=== PATIENT | male | born 1945 | race African-American/Black ===

== ENCOUNTER 2023-12-25 01:02 | Emergency (ER) | payer MEDICARE, MEDICAID ==
[~2023-12-25] VITALS: Ht 167.6 cm; Wt 55.0 kg
[~2023-12-25 01:02] MED LIST: AMLO2.5T45 PO; ASPI-1160 PO; DEXTL PO; DUTA0.5C2 PO; FAMO20TA8 PO; LIP40 PO; LOV30 SUBCUT; TAMS-11 PO; THIA100T72 NG
[2023-12-25 01:13] VITALS: O2SAT 99
[2023-12-25] MEDS: DIATR MEGLU/DIATRIZOATE SOLN 30ML ONE (03:00)
[2023-12-25] MEDS: DIATR MEGLU/DIATRIZOATE SOLN 30ML GT ONE (03:01)
[2023-12-25 04:12] VITALS: TEMP 98
[2023-12-25 06:00] VITALS: BP 111/74; PULSE 88; RESP 20
== END 2023-12-25 05:56 ==
LOC: ER 01:02
DX: K94.23 Gastrostomy malfunction (principal); K21.9 Gastro-esophageal reflux disease without esophagitis; I10 Essential (primary) hypertension; F19.90 Other psychoactive substance use, unspecified, uncomplicated; Z98.890 Other specified postprocedural states
CPT/HCPCS: 99284; 74018; Q9963

== ENCOUNTER 2024-01-21 11:46 | Inpatient (IN) | payer MEDICARE, OTHER ==
[~2024-01-21] VITALS: Ht 172.7 cm; Wt 55.3 kg
[2024-01-21] VITALS (24 sets, daily range): BP systolic 97–122; BP diastolic 49–77; PULSE 76–92; RESP 16–28; TEMP 98–98.7
[2024-01-21] MEDS ORDERED: PANTOPRAZOLE 80 MG in SODIUM CHLORIDE 0.9% 100 ML IV SCH ×2 (12:00→20:00)
[2024-01-21] MEDS: PANTOPRAZOLE SODIUM 40 MG/VIAL IV ONE (12:45)
[2024-01-21] MEDS: PIPERACILLIN/TAZO 3.375G/50ML 50 ML IV ONE (12:46)
[2024-01-21] MEDS: ONDANSETRON HCL 4MG/2ML INJ IV ONE ×2 (12:46→16:45)
[2024-01-21] MEDS: SODIUM CHLORIDE 0.9% 1000ML BAG (SEPSIS BOLUS) IV ONE (12:47)
[2024-01-21 12:53] LABS: HEMATOCRIT. 33.2 % (42.0-52.0); HEMOGLOBIN. 10.8 g/dL (14.0-18.0); MEAN CORPUSCULAR HEMOGLOBIN 29.3 pg (28.0-32.0); MEAN CORPUSCULAR HGB CONC 32.5 g/dL (31.0-37.0); MEAN CORPUSCULAR VOLUME 90.2 fL (80.0-94.0); PLATELET 546 x1000/uL (130-400); RED BLOOD CELL COUNT 3.68 mill/uL (4.7-6.1); RED CELL DISTRIBUTION WIDTH 18.5 % (11.6-14.6); WHITE BLOOD COUNT 17.3 x1000/uL (4.5-11.0)
[2024-01-21 12:54] LABS: DIFFERENTIAL COMMENT 1
[2024-01-21 13:00] LABS: CHLORIDE 103 mEq/L (98-107); POTASSIUM 4.7 mEq/L (3.5-5.1); SODIUM 138 mEq/L (136-145)
[2024-01-21 13:01] LABS: CALCIUM 8.6 mg/dL (8.7-10.4); CARBON DIOXIDE 28 mEq/L (21-32)
[2024-01-21 13:06] LABS: GLUCOSE 130 mg/dL (70-105); UREA NITROGEN BLOOD 18 mg/dL (9-23)
[2024-01-21 13:08] LABS: ALANINE AMINOTRANSFERASE 80 IU/L (10-49); ALBUMIN 2.8 g/dL (3.2-4.8); ASPARTATE AMINOTRANSFERASE 52 IU/L (<34); BILIRUBIN DIRECT 0.3 mg/dL (<=3.0); BILIRUBIN TOTAL 0.7 mg/dL (0.1-1.0); INR 1.1; PROTEIN TOTAL 5.5 g/dL (6.0-8.3); PROTHROMBIN TIME 11.9 sec (9.6-11.0)
[2024-01-21 13:24] LABS: CLARITY URINE TURBID (CLEAR); COLOR URINE DARK YELLOW (YELLOW); GLUCOSE URINE NEGATIVE (NEGATIVE); KETONES URINE TRACE (NEGATIVE); LEUKOCYTE ESTERASE URINE 3+ (NEGATIVE); NITRITE URINE NEGATIVE (NEGATIVE); OCCULT BLOOD URINE 3+ (NEGATIVE); PROTEIN URINE 3+ (NEGATIVE); SPECIFIC GRAVITY URINE 1.023 (1.005-1.030)
[2024-01-21] MEDS: PANTOPRAZOLE 80 MG in SODIUM CHLORIDE 0.9% 100 ML IV SCH ×2 (13:34→21:58)
[2024-01-21] MEDS: ACETAMINOPHEN 1000MG/100ML 100 ML IV ONE (13:39)
[2024-01-21] MEDS: VANCOMYCIN 1G PREMIX 200 ML IV SCH (13:41)
[2024-01-21 13:45] LABS: LACTIC ACID 5.3 mmol/L (0.4-2.0)
[2024-01-21 13:46] LABS: ETHANOL BLOOD < 10 mg/dL (<10); TROPONIN I HIGH SENSITIVITY 808 ng/L (3.0-53)
[2024-01-21 13:51] LABS: CALCIUM OXALATE CRYSTALS URINE 1+ /lpf
[2024-01-21 13:52] LABS: SQUAMOUS EPITHELIAL CELL URINE NONE SEEN /lpf (RARE/1+)
[2024-01-21 13:53] LABS: BACTERIA URINE 4+; RBC URINE 50-100 /hpf (0-2); WBC URINE 50-100 /hpf (0-2)
[2024-01-21 14:17] LABS: BG BASE EXCESS -2.3 mmol/L (-2.0-2.0); BG CARBOXYHEMOGLOBIN 0.3 % (0.5-1.5); BG DEOXYHEMOGLOBIN 4.9 % (0.0-5.0); BG FRACTION INSPIRED OXYGEN 100; BG HCO3 ACT 20.8 mmol/L (22.0-26.0); BG METHEMOGLOBIN 0.1 % (0.0-1.5); BG OXYGEN SATURATION 95.1 % (92.0-98.5); BG OXYHEMOGLOBIN 94.7 % (94.0-97.0); BG PCO2 29.8 mmHg (35.0-45.0); BG PH 7.461 (7.350-7.450); BG PO2 78.2 mmHg (75.0-100.0); BG SAMPLE SITE RIGHT RADIAL; BG TOTAL HEMOGLOBIN 10.4 g/dL (12.0-18.0); BG VENT MODE MASK - NRB
[2024-01-21 14:19] LABS: *AMPHETAMINES SCREEN URINE NEGATIVE (NEGATIVE); *BARBITURATES SCREEN URINE NEGATIVE (NEGATIVE); *BENZODIAZEPINES SCREEN URINE NEGATIVE (NEGATIVE); *COCAINE SCREEN URINE PRESUMPTIVE POSITIVE (NEGATIVE); CANNABINOID URINE SCREEN PRESUMPTIVE POSITIVE (NEGATIVE); METHADONE URINE SCREEN NEGATIVE (NEGATIVE); OPIATES URINE SCREEN NEGATIVE (NEGATIVE); PHENCYCLIDINE URINE SCREEN NEGATIVE (NEGATIVE)
[2024-01-21 14:20] LABS: ECSTASY MDMA SCREEN URINE NEGATIVE (NEGATIVE)
[2024-01-21] MEDS ORDERED: LIDOCAINE HCL 1% 10 MG/ML 10ML VIAL ONE (14:24)
[2024-01-21 15:07] LABS: ANISOCYTOSIS 2+; PLATELET ESTIMATE INCREASED
[2024-01-21] MEDS: NOREPINEPHRINE 8MG/250ML PMX 250 ML IV ONE (15:13)
[2024-01-21] MEDS: SODIUM CHLORIDE 0.9% 1,000 ML IV ONE ×2 (15:13→15:26)
[2024-01-21] MEDS ORDERED: DOCUSATE SODIUM 100MG CAPSULE PO PRN (15:45)
[2024-01-21] MEDS ORDERED: GUAIFENESIN 200MG/10ML SUGAR FREE UDC PO PRN (15:45)
[2024-01-21] MEDS ORDERED: ONDANSETRON HCL 4MG/2ML INJ IV PRN (15:45)
[2024-01-21] MEDS ORDERED: MAGNESIUM/ALUMINUM HYDROXIDE/SIMETHICONE 30ML UDC PO PRN (15:45)
[2024-01-21] MEDS ORDERED: NITROGLYCERIN 0.4MG TABLET SL SL PRN (15:45)
[2024-01-21] MEDS ORDERED: ACETAMINOPHEN 325MG TABLET PO PRN (15:45)
[2024-01-21] MEDS ORDERED: CLONIDINE 0.1MG TABLET PO PRN (15:45)
[2024-01-21] MEDS ORDERED: MEROPENEM 1,000 MG in SODIUM CHLORIDE 0.9% 100 ML IV SCH (16:30)
[2024-01-21 16:42] LABS: FOLIC ACID (FOLATE) SERUM > 20.00 ng/mL (>5.38); IRON 13 ug/dL (65-175)
[2024-01-21 16:43] LABS: VITAMIN B12 SERUM 691 pg/mL (211-911)
[2024-01-21 16:44] LABS: TOTAL IRON BINDING CAPACITY 292 ug/dl (250-425)
[2024-01-21] MEDS: DEXT 5%/LACTATED RINGERS 1,000 ML IV SCH (20:00)
[2024-01-21] MEDS: MEROPENEM 1G/100ML 100 ML IV SCH (20:11)
[2024-01-21] MEDS ORDERED: ZOLPIDEM TARTRATE 5MG TABLET PO PRN (21:00)
[2024-01-21] MEDS: VANCOMYCIN 750MG/150ML IV SCH (21:20)
[2024-01-21 21:34] LABS: HEMATOCRIT 33.1 % (42.0-52.0); HEMOGLOBIN 10.6 g/dL (14.0-18.0)
[2024-01-21] MEDS ORDERED: MEROPENEM 1G/100ML 100 ML IV SCH (22:00)
[2024-01-22] VITALS (94 sets, daily range): BP systolic 100–143; BP diastolic 55–99; PULSE 83–116; RESP 15–35; TEMP 98.5–100.3; O2SAT 92
[2024-01-22] MEDS ORDERED: LORAZEPAM 4MG/ML INJ IV NR (01:30)
[2024-01-22] MEDS: LORAZEPAM 2MG/ML INJ IV NR (01:45)
[2024-01-22] MEDS: NOREPINEPHRINE 8MG/250ML PMX 250 ML IV PRN (02:09)
[2024-01-22 08:48] LABS: HEMATOCRIT. 29.2 % (42.0-52.0); HEMOGLOBIN. 9.6 g/dL (14.0-18.0); MEAN CORPUSCULAR HEMOGLOBIN 29.3 pg (28.0-32.0); MEAN CORPUSCULAR HGB CONC 32.7 g/dL (31.0-37.0); MEAN CORPUSCULAR VOLUME 89.4 fL (80.0-94.0); MEAN PLATELET VOLUME 7.3 fl (7.4-10.4); PLATELET 391 x1000/uL (130-400); RED BLOOD CELL COUNT 3.26 mill/uL (4.7-6.1); WHITE BLOOD COUNT 18.7 x1000/uL (4.5-11.0)
[2024-01-22 09:03] LABS: CALCIUM 8.3 mg/dL (8.7-10.4); CHLORIDE 109 mEq/L (98-107); POTASSIUM 3.9 mEq/L (3.5-5.1); SODIUM 140 mEq/L (136-145)
[2024-01-22 09:04] LABS: CARBON DIOXIDE 25 mEq/L (21-32)
[2024-01-22 09:07] LABS: DIFFERENTIAL COMMENT 1
[2024-01-22 09:09] LABS: GLUCOSE 99 mg/dL (70-105); UREA NITROGEN BLOOD 10 mg/dL (9-23)
[2024-01-22 09:11] LABS: PHOSPHORUS 2.4 mg/dL (2.5-4.9)
[2024-01-22 09:12] LABS: CREATININE 0.5 mg/dL (0.6-1.3)
[2024-01-22] MEDS: PANTOPRAZOLE SODIUM 40 MG/VIAL IV SCH (11:33)
[2024-01-22] MEDS: POTASSIUM PHOSPHATE 10 MMOL in DEXT 5% WATER 246.6667 ML IV NR (13:35)
[2024-01-22] MEDS: TAMSULOSIN HCL 0.4MG SR CAPSULE PO SCH (13:53)
[2024-01-22 14:10] LABS: *AMPHETAMINES SCREEN URINE NEGATIVE (NEGATIVE); *BARBITURATES SCREEN URINE NEGATIVE (NEGATIVE); *BENZODIAZEPINES SCREEN URINE NEGATIVE (NEGATIVE); *COCAINE SCREEN URINE NEGATIVE (NEGATIVE); CANNABINOID URINE SCREEN NEGATIVE (NEGATIVE); METHADONE URINE SCREEN NEGATIVE (NEGATIVE); OPIATES URINE SCREEN NEGATIVE (NEGATIVE); PHENCYCLIDINE URINE SCREEN NEGATIVE (NEGATIVE)
[2024-01-22 14:11] LABS: ECSTASY MDMA SCREEN URINE NEGATIVE (NEGATIVE)
[2024-01-22] MEDS: IRON SUCROSE COMPLEX 100 MG/5 ML ML IV SCH (16:21)
[2024-01-22 16:58] LABS: AMMONIA < 17 uMol/L (<32)
[2024-01-22] MEDS: SUCRALFATE 1G TABLET PEG SCH (17:41)
[2024-01-22 18:17] LABS: ANISOCYTOSIS 2+; PLATELET ESTIMATE NORMAL
[2024-01-22] MEDS: ATORVASTATIN CALCIUM 40MG TABLET PO SCH (21:09)
[2024-01-22] MEDS: VANCOMYCIN 500MG PREMIX 100 ML IV SCH (21:10)
[2024-01-22] MEDS: IPRATROPIUM/ALBUTEROL 0.5-3(2.5)MG/3ML NEB HHN SCH (21:15)
[2024-01-23] VITALS (59 sets, daily range): BP systolic 88–133; BP diastolic 56–83; PULSE 73–113; RESP 16–31; TEMP 97.5–100.5; O2SAT 97
[2024-01-23] MEDS: ACETAMINOPHEN 325MG TABLET PO PRN (05:06)
[2024-01-23 06:48] LABS: BASOPHILS % 0.2 % (0.0-2.0); HEMATOCRIT. 28.6 % (42.0-52.0); HEMOGLOBIN. 9.3 g/dL (14.0-18.0); LYMPHOCYTES % 8.1 % (20.0-50.0); MEAN CORPUSCULAR HGB CONC 32.6 g/dL (31.0-37.0); MEAN CORPUSCULAR VOLUME 89.2 fL (80.0-94.0); MEAN PLATELET VOLUME 7.4 fl (7.4-10.4); MONOCYTES % 9.7 % (2.0-8.0); PLATELET 384 x1000/uL (130-400); WHITE BLOOD COUNT 14.7 x1000/uL (4.5-11.0)
[2024-01-23 08:21] LABS: CHLORIDE 109 mEq/L (98-107); POTASSIUM 3.2 mEq/L (3.5-5.1); SODIUM 140 mEq/L (136-145)
[2024-01-23 08:22] LABS: CARBON DIOXIDE 23 mEq/L (21-32)
[2024-01-23 08:23] LABS: CALCIUM 8.3 mg/dL (8.7-10.4)
[2024-01-23 08:27] LABS: CREATININE 0.4 mg/dL (0.6-1.3); GLUCOSE 96 mg/dL (70-105); UREA NITROGEN BLOOD 7 mg/dL (9-23)
[2024-01-23] MEDS ORDERED: POTASSIUM CHLORIDE 40 MEQ in DEXT 5% WATER 230 ML IV ONE (10:45)
[2024-01-23] MEDS: KCL 20MEQ/100ML X 2 FOR TOTAL KCL 40MEQ/200ML IV SCH (12:24)
[2024-01-23] MEDS ORDERED: VANCOMYCIN 750 MG in DEXT 5% WATER 250 ML IV SCH (18:00)
[2024-01-23] MEDS: VANCOMYCIN 750MG/150ML IV SCH (18:26)
[2024-01-24] VITALS (28 sets, daily range): BP systolic 113–143; BP diastolic 64–83; PULSE 91–108; RESP 18–27; TEMP 97.2–98.5; O2SAT 95–98
[2024-01-24 06:13] LABS: BASOPHILS % 0.5 % (0.0-2.0); EOSINOPHILS % 0.9 % (0.0-5.0); HEMATOCRIT. 30.5 % (42.0-52.0); HEMOGLOBIN. 10.1 g/dL (14.0-18.0); LYMPHOCYTES % 14.7 % (20.0-50.0); MEAN CORPUSCULAR HEMOGLOBIN 29.3 pg (28.0-32.0); MEAN CORPUSCULAR HGB CONC 33.2 g/dL (31.0-37.0); MEAN CORPUSCULAR VOLUME 88.2 fL (80.0-94.0); MEAN PLATELET VOLUME 7.5 fl (7.4-10.4); MONOCYTES % 10.7 % (2.0-8.0); NEUTROPHILS % 73.2 % (40.0-76.0); PLATELET 400 x1000/uL (130-400); RED BLOOD CELL COUNT 3.46 mill/uL (4.7-6.1); RED CELL DISTRIBUTION WIDTH 18.5 % (11.6-14.6); WHITE BLOOD COUNT 10.4 x1000/uL (4.5-11.0)
[2024-01-24 06:25] LABS: CARBON DIOXIDE 27 mEq/L (21-32); CHLORIDE 107 mEq/L (98-107); POTASSIUM 3.6 mEq/L (3.5-5.1); SODIUM 135 mEq/L (136-145)
[2024-01-24 06:26] LABS: CALCIUM 8.3 mg/dL (8.7-10.4)
[2024-01-24 06:31] LABS: CREATININE 0.3 mg/dL (0.6-1.3); GLUCOSE 107 mg/dL (70-105)
[2024-01-24 06:33] LABS: PHOSPHORUS 2.5 mg/dL (2.5-4.9)
[2024-01-24 07:11] LABS: UREA NITROGEN BLOOD < 5 mg/dL (9-23)
[2024-01-24] MEDS: IPRATROPIUM/ALBUTEROL 0.5-3(2.5)MG/3ML NEB NEB PRN (08:40)
[2024-01-25] VITALS (24 sets, daily range): BP systolic 105–147; BP diastolic 51–86; PULSE 78–122; RESP 13–31; TEMP 97.3–99; O2SAT 96–98
[2024-01-25 05:53] LABS: BASOPHILS % 0.3 % (0.0-2.0); EOSINOPHILS % 1.8 % (0.0-5.0); HEMATOCRIT 31.1 % (42.0-52.0); HEMATOCRIT. 31.1 % (42.0-52.0); HEMOGLOBIN 10.4 g/dL (14.0-18.0); HEMOGLOBIN. 10.4 g/dL (14.0-18.0); LYMPHOCYTES % 19.4 % (20.0-50.0); MEAN CORPUSCULAR HEMOGLOBIN 29.5 pg (28.0-32.0); MEAN CORPUSCULAR HGB CONC 33.6 g/dL (31.0-37.0); MEAN PLATELET VOLUME 7.4 fl (7.4-10.4); MONOCYTES % 9.2 % (2.0-8.0); NEUTROPHILS % 69.3 % (40.0-76.0); PLATELET 454 x1000/uL (130-400); RED BLOOD CELL COUNT 3.53 mill/uL (4.7-6.1); RED CELL DISTRIBUTION WIDTH 18.4 % (11.6-14.6); WHITE BLOOD COUNT 10.2 x1000/uL (4.5-11.0)
[2024-01-25 06:15] LABS: CARBON DIOXIDE 29 mEq/L (21-32); CHLORIDE 103 mEq/L (98-107); POTASSIUM 3.5 mEq/L (3.5-5.1); SODIUM 137 mEq/L (136-145)
[2024-01-25 06:16] LABS: CALCIUM 8.3 mg/dL (8.7-10.4)
[2024-01-25 06:20] LABS: CREATININE 0.3 mg/dL (0.6-1.3)
[2024-01-25 06:21] LABS: GLUCOSE 116 mg/dL (70-105)
[2024-01-25 06:23] LABS: PHOSPHORUS 2.2 mg/dL (2.5-4.9); UREA NITROGEN BLOOD < 5 mg/dL (9-23)
[2024-01-25] MEDS: MAGNESIUM 2 G PREMIX 50 ML IV NR (08:03)
[2024-01-25] MEDS: METOPROLOL TARTRATE 25MG TABLET PO SCH (09:11)
[2024-01-25] MEDS: POTASSIUM PHOSPHATE 15 MMOL in DEXT 5% WATER 245 ML IV NR (10:01)
[2024-01-26] VITALS (9 sets, daily range): BP systolic 95–130; BP diastolic 52–62; PULSE 19–98; RESP 18–22; TEMP 97.2–98; O2SAT 97
[2024-01-26 07:47] LABS: CHLORIDE 103 mEq/L (98-107); POTASSIUM 4.2 mEq/L (3.5-5.1); SODIUM 135 mEq/L (136-145)
[2024-01-26 07:48] LABS: CARBON DIOXIDE 27 mEq/L (21-32); HEMATOCRIT 34.9 % (42.0-52.0); HEMOGLOBIN 11.4 g/dL (14.0-18.0); MEAN CORPUSCULAR HEMOGLOBIN 29.2 pg (28.0-32.0); MEAN CORPUSCULAR HGB CONC 32.7 g/dL (31.0-37.0); MEAN CORPUSCULAR VOLUME 89.4 fL (80.0-94.0); PLATELET 453 x1000/uL (130-400); RED CELL DISTRIBUTION WIDTH 18.6 % (11.6-14.6); WHITE BLOOD COUNT 11.1 x1000/uL (4.5-11.0)
[2024-01-26 07:49] LABS: CALCIUM 8.9 mg/dL (8.7-10.4)
[2024-01-26 07:54] LABS: GLUCOSE 115 mg/dL (70-105)
[2024-01-26 07:55] LABS: CREATININE 0.4 mg/dL (0.6-1.3); UREA NITROGEN BLOOD < 5 mg/dL (9-23)
[2024-01-26 07:56] LABS: PHOSPHORUS 2.6 mg/dL (2.5-4.9)
[2024-01-26] MEDS: LEVOFLOXACIN 250MG TABLET PO SCH (09:00)
[2024-01-27] VITALS (9 sets, daily range): BP systolic 96–159; BP diastolic 49–93; PULSE 71–106; RESP 18–22; TEMP 97.5–98.8; O2SAT 98–100
== END 2024-01-27 20:00 | DRG 871 ==
LOC: ER 11:46 → EDBEDREQ 15:06 → EDBEDREQTM 15:06 → ER 17:52 → CVICU 18:32 → 7EST 01-25 09:30
PROVIDERS: ADMIT Internal Medicine; ATTEND Internal Medicine
PROC: 02HV33Z Insertion of Infusion Device into Superior Vena Cava, Percutaneous Approach (ICD-10-PCS; principal; 2024-01-21)
PROC: B548ZZA Ultrasonography of Superior Vena Cava, Guidance (ICD-10-PCS; 2024-01-21)
PROC: 30233N1 Transfusion of Nonautologous Red Blood Cells into Peripheral Vein, Percutaneous Approach (ICD-10-PCS; 2024-01-21)
DX: A41.9 Sepsis, unspecified organism (principal); G92.8 Other toxic encephalopathy; J69.0 Pneumonitis due to inhalation of food and vomit; R65.21 Severe sepsis with septic shock; K27.4 Chronic or unspecified peptic ulcer, site unspecified, with hemorrhage; R57.8 Other shock; N39.0 Urinary tract infection, site not specified; D62 Acute posthemorrhagic anemia; E46 Unspecified protein-calorie malnutrition; I69.354 Hemiplegia and hemiparesis following cerebral infarction affecting left non-dominant side; J44.0 Chronic obstructive pulmonary disease with (acute) lower respiratory infection; E87.20 Acidosis, unspecified; M48.55XA Collapsed vertebra, not elsewhere classified, thoracolumbar region, initial encounter for fracture; Z68.1 Body mass index [BMI] 19.9 or less, adult; B96.5 Pseudomonas (aeruginosa) (mallei) (pseudomallei) as the cause of diseases classified elsewhere; K21.9 Gastro-esophageal reflux disease without esophagitis; D75.839 Thrombocytosis, unspecified; E61.1 Iron deficiency; E78.5 Hyperlipidemia, unspecified; E87.6 Hypokalemia; I12.9 Hypertensive chronic kidney disease with stage 1 through stage 4 chronic kidney disease, or unspecified chronic kidney disease; I25.10 Atherosclerotic heart disease of native coronary artery without angina pectoris; E86.1 Hypovolemia; N18.9 Chronic kidney disease, unspecified; N40.0 Benign prostatic hyperplasia without lower urinary tract symptoms; R74.01 Elevation of levels of liver transaminase levels; Z93.1 Gastrostomy status; Z79.899 Other long term (current) drug therapy
CPT/HCPCS: 36415; 36573; 36600; 71045; 80048; 80076; 80202; 80305; 80320; 81003; 82140; 82375; 82607; 82746; 82805; 83540; 83550; 83605; 83735; 83880; 84100; 84145; 84484; 85014; 85018; 85025; 85027; 85044; 86850; 86900; 86920; 87077; 87186; 93005; 93970; 94640; 97167; 99291; C1725; C9113; J2060; J2185; J2405; J2543; J3370; J3475; J3480; J3490; J7030; J7050; J7060; P9016; A4315; G0480; J0131